=== PATIENT | female | born 1960 | race African-American/Black ===

== ENCOUNTER 2016-06-23 16:28 | Emergency (ER) | payer MEDICAID ==
[~2016-06-23] VITALS: Ht 162.6 cm; Wt 72.6 kg
[~2016-06-23 16:28] MED LIST: GUAIFENESIN-CO118 M1 ORAL; NKM; TESSALON PERLE100 M2 ORAL
[2016-06-23] MEDS ORDERED: ATORVASTATIN CA20 MG ORAL (16:39)
[2016-06-23] MEDS ORDERED: ASPIR 8181 MG ORAL (16:39)
[2016-06-23] MEDS ORDERED: IBUPROFEN400 MG ORAL (16:47)
[2016-06-23] MEDS ORDERED: PROMETHAZINE-D118 ML ORAL (16:47)
[2016-06-23 16:49] VITALS: BP 141/87
--- NOTE | 2016-06-23 20:01 | Emergency Room Report ---
History of Present Illness General Chief Complaint: Upper Respiratory Illness Present Illness HPI The patient is a 55-year-old female who denies medical history presenting for sore throat and cough which began 3 days prior. The patient described pain as a 5/10 dull ache to the back of the throat and is worse with coughing. The patient is producing a yellow sputum. The pt denies recent travel or sick contacts.The patient has not taken any medications. Patient denies any other symptoms including N, V, F, chills, AQUINO, CP, SOB (CONCEPCIÓN FITZGERALD P.A.) Allergies: Coded Allergies: METRONIDAZOLE (Verified Allergy, Severe, rash, 02/14/14) Patient History Past Medical History: see triage record Pertinent Family History: none : 7 Para: 7 Reviewed Nursing Documentation: PMH: Agreed, PSxH: Agreed (CONCEPCIÓN FITZGERALD P.A.) Nursing Documentation-PMH Hx Cancer: Yes Hx Gastrointestinal Problems: Yes - Partial hysterectomy Hx Neurological Problems: No (CONCEPCIÓN FITZGERALD P.A.) Review of Systems All Other Systems: negative except mentioned in HPI (CONCEPCIÓN FITZGERALD P.A.) Physical Exam Vital Signs Date Time Temp Pulse Resp B/P Pulse Ox O2 Delivery O2 Flow Rate FiO2 06/23/16 16:35 98.8 73 16 141/87 99 Room Air Sp02 EP Interpretation: reviewed, normal General Appearance: no apparent distress, alert, GCS 15, non-toxic Head: normocephalic, atraumatic Eyes: bilateral eye PERRL, bilateral eye normal inspection ENT: hearing grossly normal, no angioedema, normal voice, uvula midline, pharyngeal erythema Neck: full range of motion, supple/symm/no masses Respiratory: chest non-tender, lungs clear, normal breath sounds, no wheezing, speaking full sentences Cardiovascular #1: regular rate, rhythm, no edema Musculoskeletal: back normal, gait/station normal, normal range of motion, non- tender Neurologic: alert, oriented x3, responsive, motor strength/tone normal, sensory intact, normal gait, speech normal Psychiatric: judgement/insight normal, memory normal, mood/affect normal, no suicidal/homicidal ideation Skin: normal color, no rash, warm/dry, well hydrated Lymphatic: adenopathy - cervical (CONCEPCIÓN FITZGERALD P.A.) Medical Decision Making PA Attestation Dr. Segura is my supervising physician. Patient management was discussed with my supervising physician (CONCEPCIÓN FITZGERALD) Diagnostic Impression: Primary Impression: Pharyngitis, acute ER Course The patient is a 55-year-old female who denies medical history presenting for sore throat and cough which began 3 days prior Differential diagnosis include but not limited to pharyngitis, sinusitis, AOM, bronchitis, PNA Physical exam: Vitals within normal limits. Afebrile. No apparent distress HEENT exam: There is bilateral erythema. Uvula midline. Moist mucous membranes. There is bilateral cervical lymphadenopathy. Lungs are clear to auscultation bilaterally Skin is warm and dry. No rash The patient is advised this is most likely viral and will be given prescription for cough medication. ER precautions are given Patient will followup with primary care (CONCEPCIÓN FITZGERALD) ER Course I evaluated this patient in the ED at [facility] with my advanced practice provider (Physician Senior Business Development Manager) colleague, who practices under my general supervision. My impressions concur with the advanced practice provider in regards to their obtained history of present illness, physical exam, general management, diagnosis, and disposition. In particular, I agree with PA-obtained interpretation of imaging, rhythm strip. For the evening and overnight shifts, we do not have the benefit of an in-house Radiologist to review xrays so our interpretation may be limited. Patients are to be discharged only with normal vital signs (or if we discussed a particular exception), a plan for follow-up care, and understand to return to the ED for worsening symptoms. Please see midlevel healthcare providers note for further details. (JOSEPH SEGURA M.D.) Last Vital Signs Date Time Temp Pulse Resp B/P Pulse Ox O2 Delivery O2 Flow Rate FiO2 06/23/16 16:53 98.8 73 16 141/87 99 Room Air Status: improved (CONCEPCIÓN FITZGERALDAMaty) Disposition: HOME, SELF-CARE Condition: Improved Scripts Ibuprofen* (MOTRIN*) 400 Mg Tablet 400 MG ORAL Q6H, #15 TAB 0 Refills Prov: CONCEPCIÓN FITZGERALD P.A. 06/23/16 D-Methorphan Hb/Prometh Hcl* (PROMETHAZINE-DM SYRUP*) 118 Ml Syrup 5 ML ORAL Q6H Y for For Cough, #118 ML 0 Refills Prov: CONCEPCIÓN FITZGERALD 06/23/16 [facility] ([facility]P) Patient Instructions: Upper Respiratory Infection, Adult, Pharyngitis Additional Instructions: I discussed my findings with the patient. All questions and concerns have been answered. Treatment and medication compliance have been addressed. I advised the patient that they need to follow up with PMD in 3-5 days. Return to ED if pain remains or worsens, cough worsens or remains, you notice blood in your sputum, you notice wheezing, you experience a fever, or if needed for any reason. Patient verbalized understanding of discharge instructions. CONCEPCIÓN FITZGERALD Jun 23, 2016 20:01 JOSEPH SEGURA M.D. Jun 24, 2016 14:07
== END 2016-06-23 17:00 | disposition home or self-care (01) ==
LOC: EMR 16:46
DX: J02.9 Acute pharyngitis, unspecified (principal); Z90.710 Acquired absence of both cervix and uterus
CPT/HCPCS: 99284

== ENCOUNTER 2016-10-01 15:55 | Emergency (ER) | payer MEDICAID ==
[~2016-10-01] VITALS: Ht 162.6 cm; Wt 72.6 kg
[~2016-10-01 15:55] MED LIST changes: +ASPIR 8181 MG ORAL; +ATORVASTATIN CA20 MG ORAL; +IBUPROFEN400 MG ORAL; +PROMETHAZINE-D118 ML ORAL
[2016-10-01 16:11] VITALS: BP 125/75
[2016-10-01] MEDS ORDERED: Lidocaine 2% Visc 15ml soln ORAL ONE (16:15)
[2016-10-01] MEDS ORDERED: Mylanta II UD 30ml ORAL ONE (16:15)
[2016-10-01] MEDS ORDERED: Dicyclomine HCl 10mg/5ml oral soln ORAL ONE (16:15)
[2016-10-01 17:04] LABS: APPEARANCE,URINE CLEAR; KETONES,URINE NEGATIVE (NEGATIVE); LEUKOCYTE ESTERASE ,URINE 2+ (NEGATIVE); NITRITE,URINE NEGATIVE (NEGATIVE); PH,URINE 7 (4.5-8.0); PROTEIN,URINE NEGATIVE (NEGATIVE); UROBILINOGEN,URINE NORMAL MG/DL (0.0-1.0)
[2016-10-01 17:12] LABS: BACTERIA,URINE FEW /HPF; SQUAMOUS EPITHELIAL CELL,UR FEW /LPF (NONE/OCC)
[2016-10-01] MEDS ORDERED: CEPHALEXIN500 MG ORAL (17:24)
[2016-10-01] MEDS ORDERED: PEPCID20 MG ORAL (17:24)
[2016-10-01 17:27] VITALS: BP 125/75
--- NOTE | 2016-10-01 20:34 | Emergency Room Report ---
History of Present Illness General Chief Complaint: Pain Source: Patient, Medical Record Present Illness HPI The patient is a 55-year-old female with a history of GERD presenting for a burning of the mid upper abdomen as well as mid lower abdominal pain. The patient was recently diagnosed and was prescribed omeprazole she states that she was allergic. She was then given a prescription for Pepcid which did help. Symptoms returned after she stopped the medication. She then recently developed mid lower abdominal pain which is worse with urination. She also admits to increased urinary frequency. This pain described as 8/10 dull ache. She denies any other symptoms including nausea, vomiting, fever, chills, rash, shortness of breath Allergies: Coded Allergies: METRONIDAZOLE (Verified Allergy, Severe, rash, 02/14/14) TETRACYCLINE (Verified Allergy, Unknown, 10/01/16) Patient History Past Medical History: see triage record Pertinent Family History: none Last Menstrual Period: Partial hysterectomy 1994 Reviewed Nursing Documentation: PMH: Agreed, PSxH: Agreed Nursing Documentation-PMH Past Medical History: No History, Except For Hx Cancer: Yes Hx Gastrointestinal Problems: Yes - Partial hysterectomy 1994 (beginning of uterine cancer) Hx Neurological Problems: No Review of Systems All Other Systems: negative except mentioned in HPI Physical Exam Vital Signs Date Time Temp Pulse Resp B/P Pulse Ox O2 Delivery O2 Flow Rate FiO2 10/01/16 16:04 97.9 83 14 125/75 98 Room Air Sp02 EP Interpretation: reviewed, normal General Appearance: no apparent distress, alert, GCS 15, non-toxic Head: normocephalic, atraumatic Eyes: bilateral eye PERRL, bilateral eye normal inspection ENT: hearing grossly normal, normal pharynx, no angioedema, normal voice Neck: full range of motion, supple/symm/no masses Respiratory: chest non-tender, lungs clear, normal breath sounds, speaking full sentences Cardiovascular #1: regular rate, rhythm, no edema Gastrointestinal: normal bowel sounds, soft, non-distended, no guarding, no rebound, tenderness - suprapubic Genitourinary: normal inspection, no CVA tenderness Musculoskeletal: back normal, gait/station normal, normal range of motion, non- tender Neurologic: alert, oriented x3, responsive, motor strength/tone normal, sensory intact, speech normal Psychiatric: judgement/insight normal, memory normal, mood/affect normal, no suicidal/homicidal ideation Skin: normal color, no rash, warm/dry, well hydrated Lymphatic: no adenopathy Medical Decision Making PA Attestation Dr. Gamez is my supervising physician. Patient management was discussed with my supervising physician Diagnostic Impression: Primary Impression: Urinary tract infection Qualified Codes: N39.0 - Urinary tract infection, site not specified Additional Impression: GERD (gastroesophageal reflux disease) Qualified Codes: K21.9 - Gastro-esophageal reflux disease without esophagitis ER Course The patient is a 55-year-old female presenting with abdominal pain Differential diagnoses considered but not limited to: Gastroenteritis, gastritis , GERD, UTI, fibroids, among others PE: vitals WNL. Abdomen is soft. Tenderness to palpation localized over the suprapubic region. No CVA tenderness Otherwise exam is unremarkable The patient is given a GI cocktail and states that pain has decreased. Urinalysis is consistent with UTI She is given a prescription for Pepcid and also antibiotics for UTI. ER precautions are given Laboratory Tests Test 10/01/16 16:45 Urine Color Pale yellow Urine Appearance Clear Urine pH 7 (4.5-8.0) Urine Specific [place] 1.005 (1.005-1.035) Urine Protein Negative (NEGATIVE) Urine Glucose (UA) Negative (NEGATIVE) Urine Ketones Negative (NEGATIVE) Urine Occult Blood 1+ (NEGATIVE) H Urine Nitrite Negative (NEGATIVE) Urine Bilirubin Negative (NEGATIVE) Urine Urobilinogen Normal MG/DL (0.0-1.0) Urine Leukocyte Esterase 2+ (NEGATIVE) H Urine RBC 2-4 /HPF (0 - 2) H Urine WBC 5-10 /HPF (0 - 2) H Urine Squamous Epithelial Cells Few /LPF (NONE/OCC) Urine Bacteria Few /HPF (NONE) Lab Results Impression Consistent with UTI Last Vital Signs Date Time Temp Pulse Resp B/P Pulse Ox O2 Delivery O2 Flow Rate FiO2 10/01/16 17:27 97.9 14 125/75 98 Room Air 10/01/16 16:04 83 Status: improved Disposition: HOME, SELF-CARE Condition: Improved Scripts Famotidine (PEPCID) 20 Mg Tablet 20 MG ORAL DAILY, #10 TAB 0 Refills Prov: TERZIAN,CONCEPCIÓN P.A. 10/01/16 Cephalexin* (KEFLEX*) 500 Mg Capsule 500 MG ORAL EVERY 12 HOURS, #14 CAP 0 Refills Prov: TERZIAN,CONCEPCIÓN P.A. 10/01/16 Patient Instructions: Food Choices for Gastroesophageal Reflux Disease, Adult, Urinary Tract Infection Additional Instructions: I discussed my findings with the patient. All questions and concerns have been answered. Treatment and medication compliance have been addressed. I advised the patient that they need to follow up with PMD in 3-5 days. Return to ED if symptoms worsen, new symptoms arise, or if needed for any reason. Patient verbalized understanding of discharge instructions. CONCEPCIÓN FITZGERALD Oct 01, 2016 20:34
== END 2016-10-01 17:37 | disposition home or self-care (01) ==
LOC: EMR 17:13
DX: K21.9 Gastro-esophageal reflux disease without esophagitis (principal); N39.0 Urinary tract infection, site not specified; Z90.711 Acquired absence of uterus with remaining cervical stump; Z85.42 Personal history of malignant neoplasm of other parts of uterus; Z88.8 Allergy status to other drugs, medicaments and biological substances; Z88.1 Allergy status to other antibiotic agents
CPT/HCPCS: 81003; 99284

== ENCOUNTER 2016-11-28 17:55 | Emergency (ER) | payer MEDICAID ==
[~2016-11-28] VITALS: Ht 162.6 cm; Wt 72.1 kg
[~2016-11-28 17:55] MED LIST changes: +CEPHALEXIN500 MG ORAL; +PEPCID20 MG ORAL
--- NOTE | 2016-11-28 19:10 | Emergency Room Report ---
History of Present Illness General Chief Complaint: General Complaint Source: Patient Present Illness HPI This patient states that she has had intermittent episodes of a "weird" sensation that starts in her feet and migrate to her entire body to her face. She states that this happened last week. She states that it happened again today. She states that during these times she also has a globus sensation. She chest pain or shortness of breath. She denies abdominal pain. She denies recent illness. She denies cough or congestion. She denies abdominal pain. She denies dysuria or hematuria. She denies tobacco, alcohol or drug use. She has no other complaints. Allergies: Coded Allergies: METRONIDAZOLE (Verified Allergy, Severe, rash, 02/14/14) TETRACYCLINE (Verified Allergy, Unknown, 10/01/16) Patient History Past Medical History: see triage record, other - HLP Past Surgical History: other - Partial hysterectomy Social History: Denies: smoking, alcohol use, drug use Reviewed Nursing Documentation: PMH: Agreed, PSxH: Agreed Nursing Documentation-PMH Hx Cancer: Yes Hx Gastrointestinal Problems: Yes - Partial hysterectomy 1994 (beginning of uterine cancer) Hx Neurological Problems: No Review of Systems All Other Systems: negative except mentioned in HPI Physical Exam Vital Signs Date Time Temp Pulse Resp B/P (MAP) Pulse Ox O2 Delivery O2 Flow Rate FiO2 11/28/16 17:58 98.1 93 20 174/90 99 Room Air Sp02 EP Interpretation: reviewed, normal General Appearance: no apparent distress, alert, GCS 15, non-toxic Head: normocephalic, atraumatic Eyes: bilateral eye normal inspection, bilateral eye PERRL ENT: hearing grossly normal, normal pharynx, no angioedema, normal voice Neck: full range of motion, supple/symm/no masses Respiratory: chest non-tender, lungs clear, normal breath sounds, speaking full sentences Cardiovascular #1: regular rate, rhythm, no edema Gastrointestinal: normal bowel sounds, non tender, soft, non-distended, no guarding, no rebound Rectal: deferred Musculoskeletal: back normal, gait/station normal, normal range of motion, non- tender Neurologic: alert, oriented x3, responsive, motor strength/tone normal, sensory intact, speech normal Psychiatric: judgement/insight normal, memory normal, mood/affect normal, no suicidal/homicidal ideation Skin: normal color, no rash, warm/dry, well hydrated Medical Decision Making Diagnostic Impression: Primary Impression: Bilateral leg paresthesia Additional Impressions: Facial paresthesia Arm paresthesia, left Arm paresthesia, right ER Course This patient presents with paresthesias all over her body. I am unsure of the etiology of this. Her neuro exam is nonfocal. CT of the head is normal. Laboratory workup to include CBC, CMP and cardiac enzymes show no evidence of electrolyte abnormality, anemia or other emergency etiology. Possibly this is anxiety. The patient does have a globus sensation. I instructed the patient to followup with her primary care physician for further evaluation such as vitamin deficiencies and other nonurgent etiologies. At this time, I did not identify an emergency medical condition. The patient is given return precautions and followup instructions. Laboratory Tests Test 11/28/16 18:38 11/28/16 19:13 White Blood Count 7.1 K/UL (4.8-10.8) Red Blood Count 3.89 M/UL (4.20-5.40) L Hemoglobin 12.0 G/DL (12.0-16.0) Hematocrit 35.2 % (37.0-47.0) L Mean Corpuscular Volume 91 FL (80-99) Mean Corpuscular Hemoglobin 30.8 PG (27.0-31.0) Mean Corpuscular Hemoglobin Concent 34.0 G/DL (32.0-36.0) Red Cell Distribution Width 12.6 % (11.6-14.8) Platelet Count 215 K/UL (150-450) Mean Platelet Volume 8.1 FL (6.5-10.1) Neutrophils (%) (Auto) 40.9 % (45.0-75.0) L Lymphocytes (%) (Auto) 48.4 % (20.0-45.0) H Monocytes (%) (Auto) 8.4 % (1.0-10.0) Eosinophils (%) (Auto) 0.8 % (0.0-3.0) Basophils (%) (Auto) 1.6 % (0.0-2.0) Prothrombin Time 10.5 SEC (9.30-11.50) Prothrombin Time INR 1.0 (0.9-1.1) PTT 28 SEC (23-33) Sodium Level 142 mEQ/L (135-145) Potassium Level 3.6 mEQ/L (3.4-4.9) Chloride Level 104 mEQ/L (98-107) Carbon Dioxide Level 23 mEQ/L (20-30) Anion Gap 15 (5-15) Blood Urea Nitrogen 13 mg/dL (7-23) Creatinine 0.8 mg/dL (0.5-0.9) Estimate Glomerular Filtration Rate > 60 mL/min (>60) Glucose Level 97 mg/dL (74-106) Calcium Level 9.1 mg/dL (8.6-10.2) Total Bilirubin 0.3 mg/dL (0.0-1.2) Aspartate Amino Transferase (AST) 19 U/L (5-40) Alanine Aminotransferase (ALT) 30 U/L (3-33) Alkaline Phosphatase 95 U/L (35-104) Total Creatine Kinase 183 U/L (26-140) H Creatine Kinase MB 3.1 ng/mL (< 3.8) Creatine Kinase MB Relative Index 1.6 Troponin I < 0.30 ng/mL (<=0.30) Total Protein 7.1 g/dL (6.6-8.7) Albumin 4.3 g/dL (3.5-5.2) Globulin 2.8 g/dL Albumin/Globulin Ratio 1.5 (1.0-2.7) Urine Color Pale yellow Urine Appearance Clear Urine pH 5 (4.5-8.0) Urine Specific [place] 1.005 (1.005-1.035) Urine Protein Negative (NEGATIVE) Urine Glucose (UA) Negative (NEGATIVE) Urine Ketones Negative (NEGATIVE) Urine Occult Blood 2+ (NEGATIVE) H Urine Nitrite Negative (NEGATIVE) Urine Bilirubin Negative (NEGATIVE) Urine Urobilinogen Normal MG/DL (0.0-1.0) Urine Leukocyte Esterase Negative (NEGATIVE) Urine RBC 0-2 /HPF (0 - 2) Urine WBC 0-2 /HPF (0 - 2) Urine Squamous Epithelial Cells Occasional /LPF Urine Bacteria Occasional /HPF (NONE) EKG Diagnostic Results Rate: normal Rhythm: NSR ST Segments: no acute changes Rhythm Strip Diag. Results EP Interpretation: yes Rate: 70's Rhythm: NSR, no PVC's, no ectopy Chest X-Ray Diagnostic Results Chest X-Ray Diagnostic Results : Chest X-Ray Ordered: Yes # of Views/Limited/Complete: 1 View Indication: Other EP Interpretation: Yes Interpretation: no consolidation, no effusion, no pneumothorax, no acute cardiopulmonary disease Impression: No acute disease Electronically Signed by: Marycarmen CT/MRI/US Diagnostic Results CT/MRI/US Diagnostic Results : Imaging Test Ordered: CT head Impression No ICH, mass effect or edema Last Vital Signs Date Time Temp Pulse Resp B/P (MAP) Pulse Ox O2 Delivery O2 Flow Rate FiO2 11/28/16 17:58 98.1 93 20 174/90 99 Room Air Disposition: HOME, SELF-CARE Condition: Improved [facility]errals: [facility] ([facility]P) CALVIN CHAPA D.O. Nov 28, 2016 19:10
[2016-11-28 19:14] LABS: TROPONIN I < 0.30 ng/mL (<=0.30)
[2016-11-28 19:17] LABS: ALANINE AMINOTRANSFERASE 30 U/L (3-33); ALBUMIN/GLOBULIN RATIO 1.5 (1.0-2.7); ANION GAP 15 (5-15); ASPARTATE AMINO TRANSFERASE 19 U/L (5-40); CALCIUM 9.1 mg/dL (8.6-10.2); CARBON DIOXIDE 23 mEQ/L (20-30); CHLORIDE 104 mEQ/L (98-107); CREATININE 0.8 mg/dL (0.5-0.9); GLOMERULAR FILTRATION RATE > 60 mL/min (>60); HEMOLYSIS 5; POTASSIUM 3.6 mEQ/L (3.4-4.9); SODIUM 142 mEQ/L (135-145); TOTAL PROTEIN 7.1 g/dL (6.6-8.7)
[2016-11-28 19:18] VITALS: BP 157/87
[2016-11-28 19:27] LABS: CKMB 3.1 ng/mL (< 3.8)
[2016-11-28 19:34] LABS: BASOPHILS % (AUTO) 1.6 % (0.0-2.0); EOSINOPHILS % (AUTO) 0.8 % (0.0-3.0); LYMPHOCYTES % (AUTO) 48.4 % (20.0-45.0); MEAN CORPUSCULAR HEMOGLOBIN 30.8 PG (27.0-31.0); MEAN CORPUSCULAR VOLUME 91 FL (80-99); MEAN PLATELET VOLUME 8.1 FL (6.5-10.1); MONOCYTES % (AUTO) 8.4 % (1.0-10.0); NEUTROPHILS % (AUTO) 40.9 % (45.0-75.0); PLATELET COUNT 215 K/UL (150-450); RED BLOOD COUNT 3.89 M/UL (4.20-5.40); RED CELL DISTRIBUTION WIDTH 12.6 % (11.6-14.8); WHITE BLOOD COUNT 7.1 K/UL (4.8-10.8)
[2016-11-28 19:39] LABS: PROTHROMBIN TIME 10.5 SEC (9.30-11.50)
[2016-11-28 19:41] LABS: APPEARANCE,URINE CLEAR; KETONES,URINE NEGATIVE (NEGATIVE); LEUKOCYTE ESTERASE ,URINE NEGATIVE (NEGATIVE); NITRITE,URINE NEGATIVE (NEGATIVE); PH,URINE 5 (4.5-8.0); PROTEIN,URINE NEGATIVE (NEGATIVE); UROBILINOGEN,URINE NORMAL MG/DL (0.0-1.0)
[2016-11-28 19:51] LABS: BACTERIA,URINE OCCASIONAL /HPF; RBC,URINE 0-2 /HPF (0 - 2); SQUAMOUS EPITHELIAL CELL,UR OCCASIONAL /LPF (NONE/OCC); WBC,URINE 0-2 /HPF (0 - 2)
[2016-11-28 20:46] VITALS: BP 128/74
[2016-11-28 20:48] VITALS: BP 128/74
--- NOTE | 2016-11-29 08:48 | Diagnostic Imaging Report ---
Indication: Headache Technique: spiral acquisitions obtained through the brain. Angled axial and coronal 5 x 5 mm slices were reconstructed. No IV contrast utilized. Radiation dose was minimized using automated exposure control Total dose length product 1375 mGycm. CTDIvol(s) 70 mGy Comparison: none FINDINGS: No acute hemorrhage or edema. No mass effect or midline shift. There is age-related enlargement of the ventricles and extra axial CSF spaces. There is periventricular deep white matter ischemic change. Normal peguero-white differentiation. Visualized orbits are unremarkable. Visualized sinuses are unremarkable. Intact calvarium. IMPRESSION: Chronic and age-related changes. Negative for acute intracranial bleed or mass effect The CT scanner at [facility] is accredited by the [employer] and the scans are performed using protocols designed to limit radiation exposure to as low as reasonably achievable to attain images of sufficient resolution adequate for diagnostic evaluation
--- NOTE | 2016-11-29 10:54 | Diagnostic Imaging Report ---
Indication: Shortness of breath Technique: One view of the chest Comparison: none Findings: Lungs and pleural spaces are clear. Heart size is normal. No significant change Impression: No acute process
--- NOTE | 2016-11-29 14:44 | Cardiology Report ---
APPROVED REPORT EKG Measurement Heart [id number] Normal sinus rhythm Normal ECG
== END 2016-11-28 20:49 | disposition home or self-care (01) ==
LOC: EMR 18:24
DX: R20.2 Paresthesia of skin (principal); Z88.8 Allergy status to other drugs, medicaments and biological substances; Z90.710 Acquired absence of both cervix and uterus; Z85.42 Personal history of malignant neoplasm of other parts of uterus
CPT/HCPCS: 36415; 70450; 71010; 80053; 81003; 82550; 82553; 84484; 85025; 85610; 85730; 93005; 99284

== ENCOUNTER 2017-03-25 10:02 | Emergency (ER) | payer MEDICAID ==
[~2017-03-25] VITALS: Ht 160 cm; Wt 72.6 kg
--- NOTE | 2017-03-25 10:32 | Emergency Room Report ---
History of Present Illness General Chief Complaint: Upper Respiratory Illness Source: Patient Present Illness HPI Patient presents with complaints of cough congestion Ongoing for the past 10 days Patient now has increased fevers and chills Also pain to bilateral lower rib cage area Denies any vomiting denies any neck pain She does have a sore throat Denies any posterior neck pain or photophobia Allergies: Coded Allergies: METRONIDAZOLE (Verified Allergy, Severe, rash, 02/14/14) TETRACYCLINE (Verified Allergy, Unknown, 10/01/16) Patient History Past Medical History: see triage record Pertinent Family History: none Last Menstrual Period: Hysterectomy 1994. Reviewed Nursing Documentation: PMH: Agreed, PSxH: Agreed Nursing Documentation-PMH Hx Cancer: Yes Hx Gastrointestinal Problems: Yes - Partial hysterectomy 1994 (beginning of uterine cancer) Hx Neurological Problems: No Review of Systems All Other Systems: negative except mentioned in HPI Physical Exam Vital Signs Date Time Temp Pulse Resp B/P (MAP) Pulse Ox O2 Delivery O2 Flow Rate FiO2 03/25/17 10:16 98.2 81 17 137/76 99 Room Air Sp02 EP Interpretation: reviewed, normal General Appearance: well appearing, no apparent distress Head: normocephalic, atraumatic Eyes: bilateral eye PERRL, bilateral eye EOMI ENT: hearing grossly normal, TMs + canals normal, uvula midline, pharyngeal erythema Neck: full range of motion, supple, no meningismus, no bony tend Respiratory: lungs clear, normal breath sounds, no rhonchi, no respiratory distress, no retraction, no accessory muscle use Cardiovascular #1: normal peripheral pulses, regular rate, rhythm, no edema, no gallop, no JVD, no murmur Gastrointestinal: normal bowel sounds, non tender, soft, no mass, no organomegaly, non-distended, no guarding, no hernia, no pulsatile mass, no rebound Genitourinary: no CVA tenderness Musculoskeletal: normal inspection Neurologic: oriented x3, responsive, qc tech III-XII nml as tested, motor strength/ tone normal, sensory intact Psychiatric: mood/affect normal Skin: normal color, no rash, warm/dry, palpation normal Lymphatic: normal inspection, no adenopathy Medical Decision Making Diagnostic Impression: Primary Impression: Flu-like symptoms ER Course Patient is a fairly complex patient with multiple differential to consideration including but not limited to cardiac cardiopulmonary and vascular emergencies Patient's x-ray does not show any acute pathology Patient symptoms are outside of the treatment intervention for flu Patient will have initial conservative outpatient trial Chest X-Ray Diagnostic Results Chest X-Ray Diagnostic Results : Chest X-Ray Ordered: Yes # of Views/Limited/Complete: 1 View Indication: Shortness of Breath EP Interpretation: Yes Interpretation: no consolidation, no effusion, no pneumothorax, no acute cardiopulmonary disease Impression: No acute disease Electronically Signed by: Casa De Los Santos DO Last Vital Signs Date Time Temp Pulse Resp B/P (MAP) Pulse Ox O2 Delivery O2 Flow Rate FiO2 03/25/17 10:16 98.2 81 17 137/76 99 Room Air Status: unchanged Disposition: HOME, SELF-CARE Condition: Stable Scripts Ibuprofen* (MOTRIN*) 600 Mg Tablet 600 MG ORAL Q8H Y for For Pain, #20 TAB 0 Refills Prov: CASA DE LOS SANTOS D.O. 03/25/17 Guaifenesin/Dextromethorphan (ROBITUSSIN COUGH-CHEST DM LIQ) 237 Ml Liquid 10 ML PO QHS for 5 Days, ML Prov: CASA DE LOS SANTOS D.O. 03/25/17 Additional Instructions: Patient is provided with the discharge instructions notified to follow up with primary doctor in the next 2-3 days otherwise return to the er with any worsening symptoms. Please note that this report is being documented using 5 CUPS and some sugar technology. This can lead to erroneous entry secondary to incorrect interpretation by the dictating instrument. CASA DE LOS SANTOS D.O. Mar 25, 2017 10:32
[2017-03-25] MEDS ORDERED: ROBITUSSIN COU237 M1 PO (10:37)
[2017-03-25] MEDS ORDERED: IBUPROFEN600 MG ORAL (10:37)
[2017-03-25 11:03] VITALS: BP 137/76
[2017-03-25 11:04] VITALS: BP 137/76
--- NOTE | 2017-03-28 10:25 | Diagnostic Imaging Report ---
Indication: Shortness of breath Technique: XRAY Chest 1v Comparison: 11/28/2016 Findings: Cardiomediastinal silhouette is stable. There is no consolidation or pleural effusion. Degenerative changes of the spine are noted. Impression: No acute cardiopulmonary disease.
== END 2017-03-25 11:06 | disposition home or self-care (01) ==
LOC: EMR 10:30
DX: J11.1 Influenza due to unidentified influenza virus with other respiratory manifestations (principal); Z88.1 Allergy status to other antibiotic agents; Z85.42 Personal history of malignant neoplasm of other parts of uterus; Z90.711 Acquired absence of uterus with remaining cervical stump
CPT/HCPCS: 71045; 99283

== ENCOUNTER 2017-08-16 15:20 | Emergency (ER) | payer MEDICAID ==
[~2017-08-16] VITALS: Ht 160 cm; Wt 68.5 kg
[~2017-08-16 15:20] MED LIST changes: +IBUPROFEN600 MG ORAL; +ROBITUSSIN COU237 M1 PO
[2017-08-16 15:45] VITALS: BP 143/69
[2017-08-16] MEDS ORDERED: Nitroglycerin Subl 0.4mg tab SL PRN (15:45)
[2017-08-16 16:14] LABS: BASOPHILS % (AUTO) 1.5 % (0.0-2.0); EOSINOPHILS % (AUTO) 0.4 % (0.0-3.0); HEMATOCRIT 37.6 % (37.0-47.0); HEMOGLOBIN 12.8 G/DL (12.0-16.0); MEAN CORPUSCULAR VOLUME 85 FL (80-99); MONOCYTES % (AUTO) 7.2 % (1.0-10.0); NEUTROPHILS % (AUTO) 43.8 % (45.0-75.0); PLATELET COUNT 246 K/UL (150-450); RED BLOOD COUNT 4.43 M/UL (4.20-5.40); WHITE BLOOD COUNT 5.7 K/UL (4.8-10.8)
[2017-08-16 16:21] LABS: ANION GAP 7 mmol/L (5-15); BLOOD UREA NITROGEN 12 mg/dL (7-18); CALCIUM 9.6 MG/DL (8.5-10.1); CARBON DIOXIDE 28 MMOL/L (21-32); CHLORIDE 103 MMOL/L (98-107); CREATININE 0.7 MG/DL (0.55-1.30); POTASSIUM 4.7 MMOL/L (3.5-5.1); SODIUM 138 MMOL/L (136-145)
[2017-08-16 16:38] LABS: ALANINE AMINOTRANSFERASE 92 U/L (12-78); ALBUMIN/GLOBULIN RATIO 0.9 (1.0-2.7); ALKALINE PHOSPHATASE 117 U/L (46-116); ASPARTATE AMINO TRANSFERASE 47 U/L (15-37); BILIRUBIN,TOTAL 0.6 MG/DL (0.2-1.0); CKMB 1.2 NG/ML (0.0-3.6); CREATINE KINASE 202 U/L (26-308)
[2017-08-16 17:42] VITALS: BP 117/62
--- NOTE | 2017-08-16 18:09 | Emergency Room Report ---
History of Present Illness General Chief Complaint: General Complaint Present Illness HPI Patient is a 56-year-old female who presented after increased chest discomfort. Patient reports having increased palpitations as well as chest discomfort. Patient stated that she is having increased shortness of breath with minimal exertion. Patient is not a smoker. She reports having prior history of high cholesterol. Patient was recently started on a statin as well as another blood pressure medication. The patient denies any fever or productive cough. She denies any increased leg pain or swelling. He denies current chest discomfort at this time. The patient take aspirin at home. Allergies: Coded Allergies: METRONIDAZOLE (Verified Allergy, Severe, rash, 02/14/14) TETRACYCLINE (Verified Allergy, Unknown, 10/01/16) Patient History Past Medical History: see triage record Reviewed Nursing Documentation: PMH: Agreed; PSxH: Agreed Nursing Documentation-PMH Hx Cancer: Yes Hx Gastrointestinal Problems: Yes - Partial hysterectomy 1994 (beginning of uterine cancer) Hx Neurological Problems: No Review of Systems All Other Systems: negative except mentioned in HPI Physical Exam Vital Signs Date Time Temp Pulse Resp B/P (MAP) Pulse Ox O2 Delivery O2 Flow Rate FiO2 08/16/17 15:28 98.3 95 20 147/69 99 Room Air 98.2 Sp02 EP Interpretation: reviewed, normal General Appearance: normal inspection, well appearing, no apparent distress, alert, GCS 15 Head: atraumatic ENT: normal ENT inspection, hearing grossly normal, normal voice Neck: normal inspection, full range of motion, supple, no bony tend Respiratory: normal inspection, lungs clear, normal breath sounds, no respiratory distress, no retraction, no wheezing Cardiovascular #1: regular rate, rhythm, no edema Gastrointestinal: normal inspection, normal bowel sounds, non tender, soft, no guarding, no hernia Genitourinary: no CVA tenderness Musculoskeletal: normal inspection, back normal, normal range of motion Neurologic: normal inspection, alert, oriented x3, responsive, 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 Differential diagnosis included but was not limited to acute coronary syndrome, pulmonary embolism, pneumonia, aortic dissection, shingles, pneumothorax, aortic dissection, esophageal rupture, pericarditis. Because of complexity of patient's case laboratory testing and imaging studies were ordered. The EKG interpreted by me showed normal sinus rhythm with a rate of [address] or T wave changes. The patient's initial troponin was 0. The patient was noted be pain free while in the emergency department had taken aspirin at home.Patient was discussed with Dr. Colon for transfer [facility]. Labs Test 08/16/17 15:59 White Blood Count 5.7 K/UL (4.8-10.8) Red Blood Count 4.43 M/UL (4.20-5.40) Hemoglobin 12.8 G/DL (12.0-16.0) Hematocrit 37.6 % (37.0-47.0) Mean Corpuscular Volume 85 FL (80-99) Mean Corpuscular Hemoglobin 28.8 PG (27.0-31.0) Mean Corpuscular Hemoglobin Concent 33.9 G/DL (32.0-36.0) Red Cell Distribution Width 12.0 % (11.6-14.8) Platelet Count 246 K/UL (150-450) Mean Platelet Volume 9.8 FL (6.5-10.1) Neutrophils (%) (Auto) 43.8 % (45.0-75.0) Lymphocytes (%) (Auto) 47.0 % (20.0-45.0) Monocytes (%) (Auto) 7.2 % (1.0-10.0) Eosinophils (%) (Auto) 0.4 % (0.0-3.0) Basophils (%) (Auto) 1.5 % (0.0-2.0) Prothrombin Time 10.5 SEC (9.30-11.50) Prothromb Time International Ratio 1.0 (0.9-1.1) Activated Partial Thromboplast Time 27 SEC (23-33) Sodium Level 138 MMOL/L (136-145) Potassium Level 4.7 MMOL/L (3.5-5.1) Chloride Level 103 MMOL/L (98-107) Carbon Dioxide Level 28 MMOL/L (21-32) Anion Gap 7 mmol/L (5-15) Blood Urea Nitrogen 12 mg/dL (7-18) Creatinine 0.7 MG/DL (0.55-1.30) Estimat Glomerular Filtration Rate > 60 mL/min (>60) Glucose Level 139 MG/DL (74-106) Calcium Level 9.6 MG/DL (8.5-10.1) Total Bilirubin 0.6 MG/DL (0.2-1.0) Aspartate Amino Transf (AST/SGOT) 47 U/L (15-37) Alanine Aminotransferase (ALT/SGPT) 92 U/L (12-78) Alkaline Phosphatase 117 U/L (46-116) Total Creatine Kinase 202 U/L (26-308) Creatine Kinase MB 1.2 NG/ML (0.0-3.6) Creatine Kinase MB Relative Index 0.5 Troponin I 0.000 ng/mL (0.000-0.056) Pro-B-Type Natriuretic Peptide 25 pg/mL (0-125) Total Protein 8.5 G/DL (6.4-8.2) Albumin 4.0 G/DL (3.4-5.0) Globulin 4.5 g/dL Albumin/Globulin Ratio 0.9 (1.0-2.7) Lipase 98 U/L (73-393) Last Vital Signs Date Time Temp Pulse Resp B/P (MAP) Pulse Ox O2 Delivery O2 Flow Rate FiO2 08/16/17 17:42 98.3 63 20 117/62 100 Room Air 98.3 Status: improved Disposition: XFER SHT-TRM HOSP Condition: Stable Referrals: [facility]ERR[facility] (PCP) Avelino Vann MD August 16, 2017 18:09
[2017-08-16 18:56] VITALS: BP 153/72
[2017-08-16 19:08] VITALS: BP 153/72
--- NOTE | 2017-08-17 10:31 | Diagnostic Imaging Report ---
Indication: Dyspnea Comparison: 03/25/2017 A single view chest radiograph was obtained. Findings: Cardiomediastinal appearance is within normal limits for age. Pulmonary vascularity is appropriate. The diaphragmatic contour is smooth and costophrenic angles are sharp. No pleural effusions are identified. The bones are unremarkable. Impression: No acute findings
--- NOTE | 2017-08-19 17:15 | Cardiology Report ---
APPROVED REPORT EKG Measurement Heart [id number] Normal sinus rhythm with sinus arrhythmia Normal ECG
== END 2017-08-16 19:17 | disposition short-term general hospital (02) ==
LOC: EMR 16:21
DX: I24.9 Acute ischemic heart disease, unspecified (principal); Z88.1 Allergy status to other antibiotic agents
CPT/HCPCS: 36415; 71045; 80053; 82550; 82553; 83690; 83880; 84484; 85025; 85610; 85730; 93005; 99285

== ENCOUNTER 2018-04-22 15:30 | Emergency (ER) | payer MEDICAID ==
[~2018-04-22] VITALS: Ht 160 cm; Wt 69.4 kg
[2018-04-22 15:36] VITALS: BP 145/85
[2018-04-22] MEDS ORDERED: ZANTAC150 MG ORAL (15:39)
--- NOTE | 2018-04-22 16:00 | NUR ---
ED Nurse Note: Pt came in due to headache with nausea since this morning. Pt also c/o frequent urination. Denies dizziness or SOB. Pt is AAO x4, ambulatory with unlabored breathing.
--- NOTE | 2018-04-22 16:07 | Emergency Room Report ---
History of Present Illness General Chief Complaint: Dizziness Source: Patient Present Illness HPI Patient presents with reports of an episode where she felt nauseated She reports that this morning she took a generic version of her Zantac And felt that episode which has resolved Patient also reports that she had the flu recently Today felt some dizziness with standing up Patient also felt that she was urinating more than usual Denies any abdominal pain denies any flank pain denies any recent fall or trauma Allergies: Coded Allergies: METRONIDAZOLE (Verified Allergy, Severe, rash, 04/22/18) TETRACYCLINE (Verified Allergy, Unknown, 04/22/18) Patient History Past Medical History: see triage record Pertinent Family History: none Reviewed Nursing Documentation: PMH: Agreed; PSxH: Agreed Nursing Documentation-PMH Past Medical History: No History, Except For Hx Cancer: Yes Hx Gastrointestinal Problems: Yes - Partial hysterectomy 1994 (beginning of uterine cancer) Hx Neurological Problems: No Review of Systems All Other Systems: negative except mentioned in HPI Physical Exam Vital Signs Date Time Temp Pulse Resp B/P (MAP) Pulse Ox O2 Delivery O2 Flow Rate FiO2 04/22/18 15:36 98.2 73 16 145/85 97 Room Air Sp02 EP Interpretation: reviewed, normal General Appearance: well appearing, no apparent distress Head: normocephalic, atraumatic Eyes: bilateral eye PERRL, bilateral eye EOMI ENT: hearing grossly normal, normal pharynx, TMs + canals normal, uvula midline Neck: full range of motion, supple, no meningismus, no bony tend Respiratory: lungs clear, normal breath sounds, no rhonchi, no respiratory distress, no retraction, no accessory muscle use Cardiovascular #1: normal peripheral pulses, regular rate, rhythm, no edema, no gallop, no JVD, no murmur Gastrointestinal: normal bowel sounds, non tender, soft, no mass, no organomegaly, non-distended, no guarding, no hernia, no pulsatile mass, no rebound Genitourinary: no CVA tenderness Musculoskeletal: normal inspection Neurologic: oriented x3, responsive, 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, motor strength/ tone normal, sensory intact Psychiatric: mood/affect normal Skin: normal color, no rash, warm/dry, palpation normal Lymphatic: normal inspection, no adenopathy Medical Decision Making Diagnostic Impression: Primary Impression: Dizziness Additional Impression: Medication reaction ER Course Given the patient's history and presentation multiple differentials considered Accu-Chek was done to evaluate some of the reports of frequency of urination this was negative there are no other signs of infectious pathology Patient remains asymptomatic hemodynamically stable and is appropriate for close outpatient follow-up Labs Test 04/22/18 16:05 Urine Color Pale yellow Urine Appearance Clear Urine pH 7 (4.5-8.0) Urine Specific [place] 1.005 (1.005-1.035) Urine Protein Negative (NEGATIVE) Urine Glucose (UA) Negative (NEGATIVE) Urine Ketones Negative (NEGATIVE) Urine Blood 1+ (NEGATIVE) Urine Nitrite Negative (NEGATIVE) Urine Bilirubin Negative (NEGATIVE) Urine Urobilinogen Normal MG/DL (0.0-1.0) Urine Leukocyte Esterase 2+ (NEGATIVE) Urine RBC 0-2 /HPF (0 - 2) Urine WBC 2-4 /HPF (0 - 2) Urine Squamous Epithelial Cells Few /LPF (NONE/OCC) Urine Bacteria Few /HPF (NONE) Last Vital Signs Date Time Temp Pulse Resp B/P (MAP) Pulse Ox O2 Delivery O2 Flow Rate FiO2 04/22/18 16:00 73 16 Room Air 04/22/18 15:36 98.2 145/85 97 Status: unchanged Disposition: HOME, SELF-CARE Condition: Stable Scripts Ranitidine Hcl* (ZANTAC*) 150 Mg Tablet 150 MG ORAL TWICE A DAY, #20 TAB Prov: Casa Looney DO 04/22/18 Additional Instructions: Patient is provided with the discharge instructions notified to follow up with primary doctor in the next 2-3 days otherwise return to the er with any worsening symptoms. Please note that this report is being documented using [employer] technology. This can lead to erroneous entry secondary to incorrect interpretation by the dictating instrument. Casa Looney DO Apr 22, 2018 16:07
--- NOTE | 2018-04-22 16:13 | NUR ---
ED Nurse Note: Urine sent.
[2018-04-22 16:22] LABS: APPEARANCE,URINE CLEAR; BILIRUBIN, URINE NEGATIVE (NEGATIVE); COLOR,URINE PALE YELLOW; GLUCOSE, URINE (UA) NEGATIVE (NEGATIVE); KETONES,URINE NEGATIVE (NEGATIVE); LEUKOCYTE ESTERASE ,URINE 2+ (NEGATIVE); NITRITE,URINE NEGATIVE (NEGATIVE); PH,URINE 7 (4.5-8.0); PROTEIN,URINE NEGATIVE (NEGATIVE); UROBILINOGEN,URINE NORMAL MG/DL (0.0-1.0)
[2018-04-22] MEDS ORDERED: RANITIDINE HCL150 MG ORAL (16:51)
[2018-04-22 17:50] VITALS: BP 137/80
--- NOTE | 2018-04-22 17:50 | NUR ---
ED Nurse Note: Pt cleared by [facility] provider for discharge. ACI/prescription given and explained to pt and verbalized understanding of teachings provided. All medical devices such as ID band removed. Pt is AAO x4, ambulatory and left with all personal belongings.
== END 2018-04-22 17:50 | disposition home or self-care (01) ==
LOC: EMR 17:47
DX: R42 Dizziness and giddiness (principal); T50.905A Adverse effect of unspecified drugs, medicaments and biological substances, initial encounter; Y92.9 Unspecified place or not applicable; Z88.1 Allergy status to other antibiotic agents
CPT/HCPCS: 81003; 82962; 99283

== ENCOUNTER 2018-05-30 09:25 | Emergency (ER) | payer MEDICAID ==
[~2018-05-30] VITALS: Ht 160 cm; Wt 69.4 kg
[~2018-05-30 09:25] MED LIST changes: +RANITIDINE HCL150 MG ORAL; +ZANTAC150 MG ORAL
[2018-05-30] MEDS ORDERED: FLONASE ALLERG9.9 ML NS (09:35)
[2018-05-30 09:42] VITALS: BP 138/75
--- NOTE | 2018-05-30 09:45 | NUR ---
ED Nurse Note: Pt present at ER c/o unresolved cough since Feb, 2018. pt occasionally coughed during assessment. pt reported she gets green and thick phlem. pt denied pain or sore throat. pt aao x4 and calm manner. skin clean and intact.
--- NOTE | 2018-05-30 10:10 | Emergency Room Report ---
History of Present Illness General Chief Complaint: Upper Respiratory Illness Source: Patient, Medical Record Present Illness HPI 57-year-old female presents ED for evaluation. Patient complaining of cough. States she's been having a persistent cough for the last 3 months. Was seen in ER in March and was seen by her PMD separately. Having prescribed medications without improvement. Denies fevers or chills. Denies chest pain. Cough is worse at night. Productive with yellowish phlegm. Denies history of asthma. No other aggravating relieving factors. Denies any other associated symptoms Allergies: Coded Allergies: METRONIDAZOLE (Verified Allergy, Severe, rash, 04/22/18) TETRACYCLINE (Verified Allergy, Unknown, 04/22/18) Patient History Past Surgical History: hysterectomy Pertinent Family History: none Social History: Denies: smoking, alcohol use, drug use Last Menstrual Period: menopause Now: No Immunizations: UTD Reviewed Nursing Documentation: PMH: Agreed; PSxH: Agreed Nursing Documentation-PMH Hx Cancer: Yes Hx Gastrointestinal Problems: Yes - Partial hysterectomy 1994 (beginning of uterine cancer) Hx Neurological Problems: No Review of Systems All Other Systems: negative except mentioned in HPI Physical Exam Vital Signs Date Time Temp Pulse Resp B/P (MAP) Pulse Ox O2 Delivery O2 Flow Rate FiO2 05/30/18 09:32 98.2 69 18 142/80 98 Room Air Sp02 EP Interpretation: reviewed, normal General Appearance: no apparent distress, alert, GCS 15, non-toxic Head: normocephalic, atraumatic Eyes: bilateral eye normal inspection, bilateral eye PERRL ENT: hearing grossly normal, normal pharynx, no angioedema, normal voice Neck: full range of motion, supple/symm/no masses Respiratory: chest non-tender, lungs clear, normal breath sounds, speaking full sentences Cardiovascular #1: regular rate, rhythm, no edema Cardiovascular #2: 2+ carotid (R), 2+ carotid (L), 2+ radial (R), 2+ radial (L) , 2+ dorsalis pedis (R), 2+ dorsalis pedis (L) Gastrointestinal: normal bowel sounds, non tender, soft, non-distended, no guarding, no rebound Rectal: deferred Genitourinary: normal inspection, no CVA tenderness Musculoskeletal: back normal, gait/station normal, normal range of motion, non- tender Neurologic: alert, oriented x3, responsive, motor strength/tone normal, sensory intact, speech normal Psychiatric: judgement/insight normal, memory normal, mood/affect normal, no suicidal/homicidal ideation Reflexes: 3+ bicep (R), 3+ bicep (L), 3+ tricep (R), 3+ tricep (L), 3+ knee (R) , 3+ knee (L) Skin: normal color, no rash, warm/dry, well hydrated Lymphatic: no adenopathy Medical Decision Making Diagnostic Impression: Primary Impression: Atypical pneumonia ER Course Hospital Course 57-year-old female presents ED complaining of persistent cough x 3 months Differential diagnoses include: URI, pharyngitis, otitis media, asthma Clinical course Patient placed on stretcher. After initial history, physical exam reveals a female in no acute distress. Bilateral TM unremarkable. No pharyngeal erythema. No tonsillar exudates. No lymphadenopathy. lungs clear. abdomen soft. CXR - no focal consolidation Given persistence of symptoms we will treat with antibiotics. Safe for discharge close outpatient follow-up. States she has a PMD Diagnosis - atypical pneumonia Stable and discharged home with Rx amoxicillin, prednisone. Instructed to followup with PMD. Return to ED if symptoms recur or worsen Chest X-Ray Diagnostic Results Chest X-Ray Diagnostic Results : Chest X-Ray Ordered: Yes # of Views/Limited/Complete: 1 View Indication: Shortness of Breath EP Interpretation: Yes Interpretation: no consolidation, no effusion, no pneumothorax, no acute cardiopulmonary disease Impression: No acute disease Electronically Signed by: Electronically signed by Guru Wisdom MD Last Vital Signs Date Time Temp Pulse Resp B/P (MAP) Pulse Ox O2 Delivery O2 Flow Rate FiO2 05/30/18 09:42 98.3 91 18 138/75 98 Room Air Status: improved Disposition: HOME, SELF-CARE Condition: Stable Scripts Amoxicillin* (AMOXIL*) 500 Mg Capsule 500 MG ORAL THREE TIMES A DAY, #21 CAP Prov: Guru Wisdom MD 05/30/18 Albuterol Sulfate* (ALBUTEROL SULFATE MDI*) 8.5 Gm Hfa.aer.ad 2 PUFF INH Q6H, #1 EA 0 Refills Prov: Guru Wisdom MD 05/30/18 Guru Wisdom MD May 30, 2018 10:10
[2018-05-30] MEDS ORDERED: ALBUTEROL SULF8.5 GM INH (10:27)
[2018-05-30] MEDS ORDERED: AMOXICILLIN500 MG ORAL (10:27)
[2018-05-30 10:35] VITALS: BP 130/65
--- NOTE | 2018-05-30 10:36 | NUR ---
ER DISCHARGE NOTE: Patient is cleared to be discharged per ERMD after reviewing x-ray result, pt is aox4, on room air, with stable vital signs. pt was given dc and prescription instructions, pt was able to verbalize understanding, pt id band removed. pt is able to ambulate with steady gait. pt took all belongings.
--- NOTE | 2018-05-30 11:11 | Diagnostic Imaging Report ---
Indication: Cough Technique: One view of the chest Comparison: 08/16/2017 Findings: Lungs and pleural spaces are clear. Heart size is normal. No significant interim change Impression: No acute process
== END 2018-05-30 10:37 | disposition home or self-care (01) ==
LOC: EMR 09:55
DX: J18.9 Pneumonia, unspecified organism (principal); Z90.710 Acquired absence of both cervix and uterus; Z88.1 Allergy status to other antibiotic agents
CPT/HCPCS: 71045; 99283

== ENCOUNTER 2018-06-21 06:57 | Emergency (ER) | payer MEDICAID ==
[~2018-06-21] VITALS: Ht 160 cm; Wt 69.4 kg
[~2018-06-21 06:57] MED LIST changes: +ALBUTEROL SULF8.5 GM INH; +AMOXICILLIN500 MG ORAL; +FLONASE ALLERG9.9 ML NS
[2018-06-21 07:20] VITALS: BP 136/82
--- NOTE | 2018-06-21 07:20 | NUR ---
ED Nurse Note: PT WALKED IN TO ER TODAY FROM HOME. AOX4. PT C/O ITCHING AND MILD SWELLING OF FACE AND NECK X 2 DAYS AGO AND BELIEVES IT MAY BE AN ALLERGIC REACTION. PT ALSO C/O ITCHY THROAT. PT DENIES ANY PAIN. AIRWAY PATENT, RR18@99% O2 SATURATION. PT STATES SHE HASN'T DONE ANYTHING OUT OF HER NORMAL ROUTINE AND DENIES ANY NEW PRODUCT USE.
[2018-06-21] MEDS ORDERED: PREDNISONE20 MG ORAL (07:38)
[2018-06-21] MEDS ORDERED: BENADRYL25 M3 PO (07:38)
--- NOTE | 2018-06-21 07:42 | Emergency Room Report ---
History of Present Illness General Chief Complaint: Allergic Reaction Source: Patient Present Illness HPI 57-year-old female with a history of high cholesterol on atorvastatin and baby aspirin, presents with 2-day history of red itchy rash around both of her eyes, as well as her upper neck area, avoid last night she also felt a tearing sensation in her throat, she tried Benadryl, as well as Zyrtec with partial relief. She started reusing a Neutrogena wrinkle cream which she is used in the past, a few days before this started. She denies any new medications otherwise, no new cosmetic products, new foods, and cannot think of any other triggers. Denies shortness of breath, abdominal pain, nausea, lightheadedness, any other symptoms. Ports the rash is improved, but she still feels itchy around the eyes. She denies any genital or anal involvement, reports there is never any oral pharyngeal involvement other than her strange sensation in her throat, she denies hoarseness of voice ever. Allergies: Coded Allergies: METRONIDAZOLE (Verified Allergy, Severe, rash, 04/22/18) TETRACYCLINE (Verified Allergy, Unknown, 04/22/18) Patient History Past Medical History: see triage record Last Menstrual Period: DUC Now: No Reviewed Nursing Documentation: PMH: Agreed; PSxH: Agreed Nursing Documentation-PMH Past Medical History: No History, Except For Hx Cancer: Yes Hx Gastrointestinal Problems: Yes - Partial hysterectomy 1994 (beginning of uterine cancer) Hx Neurological Problems: No Review of Systems All Other Systems: negative except mentioned in HPI Physical Exam Vital Signs Date Time Temp Pulse Resp B/P (MAP) Pulse Ox O2 Delivery O2 Flow Rate FiO2 06/21/18 07:14 97.9 80 16 142/86 97 Room Air Sp02 EP Interpretation: reviewed, normal General Appearance: no apparent distress, alert, non-toxic Head: normocephalic Eyes: right eye other - pterygium; bilateral eye normal inspection, bilateral eye PERRL, bilateral eye EOMI ENT: normal ENT inspection, hearing grossly normal, normal pharynx, no angioedema, normal voice, moist mucus membranes Neck: normal inspection, full range of motion, supple, supple/symm/no masses Respiratory: chest non-tender, lungs clear, normal breath sounds, chest symmetrical, palpation of chest normal Cardiovascular #1: normal peripheral pulses, regular rate, rhythm Cardiovascular #2: 2+ radial (R), 2+ radial (L) Gastrointestinal: normal inspection, non tender, soft, no mass, no guarding, no rebound Rectal: deferred Genitourinary: normal inspection, no CVA tenderness Musculoskeletal: back normal, gait/station normal, normal range of motion, non- tender, no calf tenderness Neurologic: alert, responsive, 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, motor strength/tone normal, sensory intact, speech normal Psychiatric: judgement/insight normal, memory normal, mood/affect normal, no suicidal/homicidal ideation Skin: normal color, no rash, warm/dry, normal turgor Lymphatic: no adenopathy Medical Decision Making Diagnostic Impression: Primary Impression: Allergic reaction ER Course Sheet with allergic reaction, however no hives noted on skin exam, but patient has a dark complexion, she reports it itches, but it is not red and raised on my examination, she does herself report that it was more red earlier, she has a normal voice, normal posterior oropharyngeal examination, and symptoms been going on for 2 days. I do not suspect anaphylaxis or severe reaction, but will request she stop her nitrogen a cream, as well as any other cosmetic products and ointments or chemicals used in her hair, and take Benadryl and prednisone for the next 4 days, and follow-up with her primary doctor for allergy testing. He understands and agrees, and I also recommended she does come back immediately if the rash recurred, worsen, or she develops any throat or oral problems again. Last Vital Signs Date Time Temp Pulse Resp B/P (MAP) Pulse Ox O2 Delivery O2 Flow Rate FiO2 06/21/18 07:14 97.9 80 16 142/86 97 Room Air Disposition: HOME, SELF-CARE Condition: Stable Scripts Diphenhydramine HCl (Benadryl) 25 Mg Capsule 25 MG PO EVERY 6 HOURS for 5 Days, #20 CAP Prov: ERNESTO CHESTER M.D 06/21/18 Prednisone* (PREDNISONE*) 20 Mg Tablet 40 MG ORAL DAILY for 4 Days, #4 TAB Prov: ERNESTO CHESTER M.D 06/21/18 Patient Instructions: Allergies ERNESTO CHESTER M.D Jun 21, 2018 07:42
[2018-06-21 07:53] VITALS: BP 138/86
--- NOTE | 2018-06-21 07:54 | NUR ---
ER Nurse Note: PT LAYING PEACEFULLY IN BED IN NAD. AOX4. PRESCRIPTIONS AND DISCHARGE PAPERWORK EXPLAINED TO PT. PT VERBALIZES UNDERSTANDING AND ALL QUESTIONS ANSWERED. PRESCRIPTIONS AND DISCHARGE PAPERWORK GIVEN TO PT AND ID WRISTBAND REMOVED. PT WALKED OUT OF ER WITH STEADY GAIT AND ALL BELONGINGS.
== END 2018-06-21 07:57 | disposition home or self-care (01) ==
LOC: EMR 07:44
DX: T78.40XA Allergy, unspecified, initial encounter (principal); X58.XXXA Exposure to other specified factors, initial encounter; H11.001 Unspecified pterygium of right eye; Z88.1 Allergy status to other antibiotic agents; Z90.710 Acquired absence of both cervix and uterus; Z85.42 Personal history of malignant neoplasm of other parts of uterus
CPT/HCPCS: 99282; J7512